=== PATIENT | female | born 1935 | race Caucasian/White ===

== ENCOUNTER 2017-01-10 10:43 | Inpatient (IN) ==
[2017-01-10] MEDS ORDERED: SODIUM CHLORIDE 0.9% 500 ML IV STA ×2 (11:15→11:49)
[2017-01-10] MEDS ORDERED: ONDANSETRON 4 MG/2 ML VIAL ONE (11:36)
[2017-01-10 11:40] LABS: Basophils # 0.1 10*3/uL (0.0-0.2); Basophils % 0.3 % (0.0-0.8); Eosinophils % 0.1 % (0.00-10.9); Hemoglobin 13.5 GM/DL (12.0-16.0); Immature Granulocytes % 0.6 %; Immature Granulocytes Absolute 0.11 #; Lymphocytes # 1.3 10*3/uL (1.4-4.0); Lymphocytes % 6.7 % (21.3-54.2); Mean Corpuscular HGB Conc 34.6 GM/DL (32-36); Mean Corpuscular Hemoglobin 30 PG (27-34); Mean Corpuscular Volume 85.2 FL (87-102); Mean Platelet Volume 9.8 FL (9.6-12.0); Monocytes % 5.5 % (1.7-12.7); Neutrophils # 16.3 10*3/uL (1.4-7.4); Neutrophils % 86.8 % (38.7-73.9); Platelet Count 269 T/CUMM (130-400); Red Blood Count 4.58 MC/CUMM (3.8-5.5); White Blood Count 18.8 T/CUMM (4-12)
[2017-01-10 12:10] LABS: Apearance,Urine CLOUDY (Clear); Bacteria,Urine Many /HPF (Few); Bilirubin,Urine Negative (Negative); Blood, Urine Small mg/dL (Negative); Glucose,Urine (UA) Negative (Negative); Ketones,Urine Negative (Negative); Mucus,Urine Occasional /LPF (Occasional); Nitrite,Urine Positive (Negative); Protein,Urine 30 MG/DL; Squamous Epithelial Cell,Urine Occasional /HPF (0-10); Urine Color Yellow (Yellow); Urine Specific Gravity 1.012 (1.001-1.035); Urine Urobilinogen < 2.0 EU/DL (0.2-1.0); WBC,Urine 296 /HPF (0-6)
[2017-01-10] MEDS ORDERED: PIPERACILLIN/TAZOBACTAM 2,250 MG in SODIUM CHLORIDE 0.9% 100 ML IV STA (12:16)
[2017-01-10] MEDS ORDERED: PIPERACILLIN/TAZOBACTAM 3,375 MG in SODIUM CHLORIDE 0.9% 100 ML IV STA (12:17)
[2017-01-10 12:20] LABS: Albumin 3.6 G/DL (3.4-5.0); Bilirubin,Total 0.6 MG/DL (0.2-1.0); Calcium 8.9 MG/DL (8.5-10.1); Osmolality,Calculated 280.7 MOS/KG (273-304); Total Protein 6.4 G/DL (6.4-8.3)
--- NOTE | 2017-01-10 12:21 | Emergency Department Note ---
Altagracia Schneider Rolonda, am scribing for, and in the presence of, Julien Mirza MD 11:21. Yuki Schneider Phillip K, MD, personally performed the services described in this documentation, ascribed by Aurelia Frias in my presence, and it is both accurate and complete . Arrival - Arrival Chief Complaint: Fall Stated Complaint: Disorient,sob,fell,dry mouth,unsteady balance ED Nursing Triage Note: reports has fallen three times over the past two days. has been dry heaving all night but not vomiting anything up. pt c/o mouth being dry. Mode of Arrival: Wheelchair Limitations: No Limitations Source: Patient, Old Records Reviewed, RN Notes Reviewed - History of Present Illness HPI Narrative: Pt is an 81 y/o female who presents to the ED for further evaluation of a fall with an onset of x1 week ago. Pt has a PMHx of Anemia. Pt states that the first time she fell was when she was coming out of [place] last week. Pt states that she blacked out when she fell and she does not remember falling. She states that she also fell x2 times last night while in the bathroom. She states that her legs became weak and she fell. Pt denies LOC s/p falling last night. She confirms that she had a CT scan done x1 week ago with nml results. She confirms "tremendous" generalized weakness, weight loss, and dry heaving but denies change in speech. She states that she had a scar repair from heart surgery x3 weeks ago and that she is on Plavix. No other complaint/pain in ED. Onset (ago): week(s) Consistency: constant Severity: moderate, severe Severity scale (1-10): 5 Allergies/Adverse Reactions: Allergies Allergy/AdvReac Type Severity Reaction Status Date / Time atorvastatin [From Lipitor] Allergy Unknown Unknown/Unable Verified 01/09/16 07: 40 to obtain azithromycin [From Zithromax] Allergy Unknown Unknown/Unable Verified 01/09/16 07:40 to obtain clarithromycin [From Biaxin] Allergy Unknown Unknown/Unable Verified 01/09/16 07 :40 to obtain Erythromycin Base Allergy Unknown Unknown/Unable Verified 01/09/16 07:40 to obtain ezetimibe [From Zetia] Allergy Unknown Unknown/Unable Verified 01/09/16 07:40 to obtain Home Medications: Home Medications Medication Instructions Recorded Confirmed Type Allopurinol 300 mg PO DAILY 01/09/16 01/10/17 History Aspirin [Ecotrin] 81 mg PO QAM 01/09/16 01/10/17 History Carvedilol 3.125 mg PO BID 01/09/16 01/10/17 History Clopidogrel [Plavix] 75 mg PO BEDTIME 01/09/16 01/10/17 History Furosemide 80 mg PO DAILY 01/09/16 01/10/17 History HYDROcodone/ACETAMIN 5-325 [[place] 1 tablet PO Q6H PRN 01/09/16 01/10/17 History 5-325] Levothyroxine Tab [Synthroid Tab] 100 mcg PO DAILY@0700 01/09/16 01/10/17 History Nitroglycerin [Nitroglycerin SL 0.4 mg SL Q5M PRN 01/09/16 01/10/17 History Tab] Potassium Chloride 20 meq PO DAILY 01/09/16 01/10/17 History Amitriptyline HCl [Amitriptyline 50 mg PO BEDTIME PRN 01/10/17 01/10/17 History HCl] Cetirizine Tab [ZyrTEC Tab] 10 mg PO DAILY PRN 01/10/17 01/10/17 History Docusate Sodium Cap [Colace Cap] 100 mg PO DAILY 01/10/17 01/10/17 History Ibuprofen/Diphenhydramine HCl 1 capsule PO BEDTIME PRN 01/10/17 01/10/17 History [Advil PM Cap] Meclizine [Antivert] 12.5 mg PO BID PRN 01/10/17 01/10/17 History Oxybutynin [Ditropan] 5 mg PO TID 01/10/17 01/10/17 History Ranitidine Tab [Zantac Tab] 150 mg PO DAILY 01/10/17 01/10/17 History Rosuvastatin Calcium [Rosuvastatin 20 mg PO BEDTIME 01/10/17 01/10/17 History Calcium] traZODone [Desyrel] 50 mg PO BEDTIME PRN 01/10/17 01/10/17 History Review of System - Review of System 12 point system: reviewed and no additional remarkable complaints except as stated - Review of System Constitutional: Present: fever, weakness (generalized "tremendous"), weight loss. Absent: chills Eyes: Absent: discharge Head/Ears/Nose/Throat: Absent: earache Respiratory: Absent: cough Cardiovascular: Present: syncope. Absent: chest pain Gastrointestinal: Present: nausea. Absent: abdominal pain, vomiting (dry heaving) Genitourinary female: Absent: dysuria Musculoskeletal: Absent: arm pain, back pain Skin: Absent: rash Neurological: Absent: headache Psychiatric: Absent: anxiety Endocrine: Absent: cold intolerance Hematological/Lymphatic: Absent: easy bleeding Allergic/Immunologic: Absent: facial swelling Medical,Surgical,& Family Hx - Medical History Cardio: No history of: [place], Pacemaker Neurology: History of: Cerebrovascular Accident Endocrine: History of: Dyslipidemia, Thyroid Disorder Genitourinary: No history of: Kidney Stones Gastrointestinal: History of: GERD, GI Problems (DIARRHEA) Musculoskeletal: History of: Back/Neck Problems - Surgical History Cardiac Surgeries: Sugical HX of: Cardiac Catheterization, Cardiac Surgery (2013 ) HEENT Surgeries: Surgical HX of: Tonsilectomy & Adenoidectomy Abdominal Surgeries: Surgical HX of: Appendectomy, Colonoscopy, EGD Patient denies: Cholecystectomy Reproductive Surgeries: Surgical HX of;: Hysterectomy Orthopedic Surgeries: Patient denies;: Orthopedic Surgery - Social History Smoking Status: Never smoker Exam Vital Signs: Vital Signs Temperature 99.0 F 01/10/17 20:00 Pulse Rate 68 01/11/17 07:00 Respiratory Rate 15 01/11/17 07:00 Blood Pressure 144/51 01/11/17 07:00 O2 Sat by Pulse Oximetry 96 01/11/17 07:00 - General General appearance: alert, in no apparent distress - Head Head exam: Present: atraumatic, normocephalic - Eye Eye exam: Present: PERRL, EOMI. Absent: normal appearance (pale conjunctival) - ENT ENT exam: Absent: mucous membranes dry (pale mucous membranes) - Neck Neck exam: Present: full ROM. Absent: tenderness - Chest Chest inspection: Present: symmetric chest wall rise. Absent: tenderness - Respiratory Respiratory exam: Present: normal lung sounds bilaterally. Absent: wheezes - Cardiovascular Cardiovascular exam: Present: normal rhythm, tachycardia - Abdominal Exam Abdominal exam: Present: soft, normal bowel sounds. Absent: tenderness - Extremities Exam Extremities exam: Present: full ROM, pedal edema (trace). Absent: tenderness - Back Exam Back exam: Present: full ROM. Absent: tenderness - Neurological Exam Neurological exam: Present: alert, oriented X3, CN II-XII intact - Psychiatric Psychiatric exam: Present: normal affect, normal mood - Skin Skin exam: Present: warm, dry, intact, normal color. Absent: rash Course Course Narrative: Patient discussed with the hospitalist. Patient was tilt positive her heart rate was 89 supine with a blood pressure 118/61. Sitting her up her pressure went to 73/53 with a pulse of 107. Results - Labs CBC & BMP: 01/11/17 03:49 01/11/17 03:49 Lab Results: I have reviewed the patients labs (Urinalysis shows large amount of leukocytes and bacteria in a cath specimen) Labs: Laboratory Tests 01/10/17 11:29 WBC 18.8 H RBC 4.58 Hgb 13.5 Hct 39.0 MCV 85.2 L Neut % (Auto) 86.8 H Lymph % (Auto) 6.7 L Neut # (Auto) 16.3 H Lymph # (Auto) 1.3 L [place] # (Auto) 1.0 H Laboratory Tests 01/10/17 11:29 Urine pH 5.0 Ur Specific [place] 1.012 Urine Protein 30 Urine Glucose (UA) Negative Urine Ketones Negative Urine Blood Small Urine Nitrate Positive H Urine Bilirubin Negative Urine Urobilinogen < 2.0 H Urine Leukocytes Large H Urine WBC 296 Urine WBC Clumps Many Ur Squamous Epith Cells Occasional Urine Bacteria Many Urine Mucus Occasional Ur Culture Indicated? Results to follow Laboratory Tests 01/10/17 01/10/17 11:29 11:29 Sodium 138 Potassium 3.0 L Chloride 99 Carbon Dioxide 28 BUN 22 H Creatinine 1.60 H GFR Calculation 28 Glucose 146 H Lactic Acid 2.6 H Alkaline Phosphatase 163 H - EKG EKG results: interpreted by DEYVI, sinus rhythm (Right bundle branch block) - Diagnostic Findings Procedure: Chest x-ray: image reviewed by me, report reviewed by me (No infiltrate noted. No acute cardiopulmonary process compared to the previous study. Shallow breath.) Disposition Clinical Impression: Acute pyelonephritis, Frequent falls, Dehydration, Possible sepsis, History of syncope, Hypokalemia Case discussed with: patient, patient's family Disposition: Still a Patient Condition: Guarded
[2017-01-10] MEDS ORDERED: POTASSIUM CHLORIDE 20 MEQ TABLET PO STA (12:35)
[2017-01-10] MEDS ORDERED: PIPERACILLIN/TAZOBACTAM 3,375 MG VIAL IV ONE (12:35)
--- NOTE | 2017-01-10 12:43 | EKG Report ---
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
[2017-01-10] MEDS ORDERED: POTASSIUM CHLORIDE 20 MEQ TABLET PO ONE (12:59)
[2017-01-10] MEDS ORDERED: SODIUM CHLORIDE 0.9% 1,900 ML IV ONE (13:11)
[2017-01-10] MEDS ORDERED: ACETAMINOPHEN 325 MG TABLET PO PRN (13:14)
[2017-01-10] MEDS ORDERED: ONDANSETRON 4 MG/2 ML VIAL IV PRN (13:14)
--- NOTE | 2017-01-10 13:20 | Hospitalist History & Physical ---
Assessment and Plan - Time spent with patient Time spent with patient: Greater than 30 minutes (1) Sepsis Status: Acute Assessment and plan: WBC 18.8 lactic acid 2.6 temp 100.0 tachycardic Initiate sepsis protocol including blood cultures 2, urine cultures, fluid bolus plus maintenance IV fluids, routine lactic acid in 3 hours Admit to CCU for further evaluation and treatment Current Visit: Yes (2) UTI (urinary tract infection) Status: Acute Assessment and plan: Urine cultures have been ordered. Patient started on Zosyn empirically per sepsis protocol Current Visit: Yes (3) Dehydration Status: Acute Assessment and plan: Elevated creatinine is 1.6. IV fluids. Recheck chemistry in a.m. Current Visit: Yes (4) Frequent falls Status: Acute Current Visit: Yes (5) History of syncope Status: Acute Current Visit: Yes (6) Hypokalemia Status: Acute Assessment and plan: Potassium 3.0. Initiate potassium replacement protocol Current Visit: Yes History of Present Illness Chief complaint: UTI, Falls, Sepsis History of present illness: Ms. Suero is a 81 year old white female with a past medical history significant for CVA, hypertension, syncopal episodes, frequent falls, UTIs and cardiomyopathy who presents to the ED today with complaints of frequent falls, decreased appetite and UTI having onset yesterday. The patient reports that she has intermittently experienced frequent falls for the better part of a year now with 4 episodes in the last 2 weeks (2 on last night). She reports a history of UTIs but "never this bad". She confirms mild headache, dysuria, coughing, dry heaving, nausea, lower back pain and mild confusion since returning from their family condo in [place] on yesterday. She has not had an appetite and has only had a cup of coffee and a few sips of water since Tuesday. On admission, the patient was found to have orthostatic hypotension, a low grade fever (100F) , tachycardia, and an elevated WBC (18.8). On further exam, her urine is positive for infection and her lactic acid level is 2.6. Blood and urine cultures were ordered, a fluid bolus was given, IV broad spectrum antibiotics were started and the patient was admitted to CCU for further evaluation and treatment. This case has been discussed with both Dr. Mirza and Dr. Bledsoe, and the patient has been admitted to the hospital medicine service. CODE STATUS discussed; patient is a FULL CODE. Home medications have been reviewed and reconciled. Home Medications Medication Instructions Recorded Confirmed Type Allopurinol 300 mg PO DAILY 01/09/16 01/10/17 History Aspirin [Ecotrin] 81 mg PO QAM 01/09/16 01/10/17 History Carvedilol 3.125 mg PO BID 01/09/16 01/10/17 History Clopidogrel [Plavix] 75 mg PO BEDTIME 01/09/16 01/10/17 History Furosemide 80 mg PO DAILY 01/09/16 01/10/17 History HYDROcodone/ACETAMIN 5-325 [[place] 1 tablet PO Q6H PRN 01/09/16 01/10/17 History 5-325] Levothyroxine Tab [Synthroid Tab] 100 mcg PO DAILY@0700 01/09/16 01/10/17 History Nitroglycerin [Nitroglycerin SL 0.4 mg SL Q5M PRN 01/09/16 01/10/17 History Tab] Potassium Chloride 20 meq PO DAILY 01/09/16 01/10/17 History Amitriptyline HCl [Amitriptyline 50 mg PO BEDTIME PRN 01/10/17 01/10/17 History HCl] Cetirizine Tab [ZyrTEC Tab] 10 mg PO DAILY PRN 01/10/17 01/10/17 History Docusate Sodium Cap [Colace Cap] 100 mg PO DAILY 01/10/17 01/10/17 History Ibuprofen/Diphenhydramine HCl 1 capsule PO BEDTIME PRN 01/10/17 01/10/17 History [Advil PM Cap] Meclizine [Antivert] 12.5 mg PO BID PRN 01/10/17 01/10/17 History Oxybutynin [Ditropan] 5 mg PO TID 01/10/17 01/10/17 History Ranitidine Tab [Zantac Tab] 150 mg PO DAILY 01/10/17 01/10/17 History Rosuvastatin Calcium [Rosuvastatin 20 mg PO BEDTIME 01/10/17 01/10/17 History Calcium] traZODone [Desyrel] 50 mg PO BEDTIME PRN 01/10/17 01/10/17 History Allergies Allergy/AdvReac Type Severity Reaction Status Date / Time atorvastatin [From Lipitor] Allergy Unknown Unknown/Unable Verified 01/09/16 07: 40 to obtain azithromycin [From Zithromax] Allergy Unknown Unknown/Unable Verified 01/09/16 07:40 to obtain clarithromycin [From Biaxin] Allergy Unknown Unknown/Unable Verified 01/09/16 07 :40 to obtain Erythromycin Base Allergy Unknown Unknown/Unable Verified 01/09/16 07:40 to obtain ezetimibe [From Zetia] Allergy Unknown Unknown/Unable Verified 01/09/16 07:40 to obtain Medical,Surgical,& Family Hx - Medical History Cardio: No history of: [place], Pacemaker Neurology: History of: Cerebrovascular Accident Endocrine: History of: Dyslipidemia, Thyroid Disorder Genitourinary: No history of: Kidney Stones Gastrointestinal: History of: GERD, GI Problems (DIARRHEA) Musculoskeletal: History of: Back/Neck Problems - Surgical History Cardiac Surgeries: Sugical HX of: Cardiac Catheterization, Cardiac Surgery (2013 ) HEENT Surgeries: Surgical HX of: Tonsilectomy & Adenoidectomy Abdominal Surgeries: Surgical HX of: Appendectomy, Colonoscopy, EGD Patient denies: Cholecystectomy Reproductive Surgeries: Surgical HX of;: Hysterectomy Orthopedic Surgeries: Patient denies;: Orthopedic Surgery - Social History Smoking Status: Never smoker Frequency of Alcohol Use: None Type of Drug Use: None Marital Status: Lives With:: Spouse Functional capacity: uses cane/walker 12 point system: reviewed and no additional remarkable complaints except as stated Exam - Constitutional Vitals: Period Temp Pulse Resp BP Sys/Yin Pulse Ox Last 24 Hr 100.0 F-100.0 F 98-98 18-20 121-121/66-66 97 General appearance: normal weight, mild distress - Head Head exam: Present: normal inspection, normocephalic, atraumatic - Eye Eye exam: Present: EOMI Pupils: Present: LUIZA - ENT ENT exam: Present: normal exam, normal external ear exam - Neck Neck exam: Present: normal inspection. Absent: lymphadenopathy, tenderness - Respiratory Respiratory exam: Present: clear to auscultation bilaterally. Absent: rales, rhonchi, wheezes - Cardiovascular Cardiovascular exam: Present: tachycardia - GI/Abdominal GI/Abdominal exam: Present: normal bowel sounds, soft. Absent: ascites, distended, guarding, mass, rebound - Extremities Exam Extremities exam: Present: normal inspection, normal capillary refill, edema ( trace to 1+ pitting in BLEs) - Back Exam Back exam: Present: normal inspection. Absent: CVA tenderness (L), CVA tenderness (R) - Neurological Exam Neurological exam: Present: alert, oriented X3, reflexes normal - Psychiatric Psychiatric exam: Present: normal affect, normal mood - Skin Skin exam: Present: normal color, warm, dry. Absent: erythema Results - Labs CBC & BMP: 01/10/17 11:29 01/10/17 11:29 Lab Results: I have reviewed the past 24 hour labs - EKG EKG results: interpreted by ERMD - Diagnostic Findings Procedure: Chest x-ray: image reviewed by me, report reviewed by me ( unremarkable) Sepsis - Sepsis Classification of Sepsis: Sepsis - Physical Exam Respiratory exam: clear to auscultation bilaterally Capillary Refill: Less Than 3 Seconds Peripheral pulses: Radial (L): 1+, Radial (R): 1+, Dorsalis Pedis (L) PM: 1+, Dorsalis Pedis (R) PM: 1+, Posterior Tibialis (L): 1+, Posterior Tibialis (R): 1 + Cardiovascular exam: tachycardia Skin exam: normal color
--- NOTE | 2017-01-10 13:28 | XRay Report ---
History: Fever. Falls Date: 01/10/2017 Study: Chest x-ray AP portable Comparison exam: May 21, 2014 There is stable borderline cardiomegaly. The mediastinal contours are unchanged in this patient status post prior median sternotomy. The pulmonary vasculature is not engorged. There is no confluent infiltrate. There is mild scarring in the left base. There is no gross pleural effusion. There is osteopenia and mild to moderate thoracic spondylosis. Impression: No acute cardiopulmonary process compared to the previous study. Shallow breath PROCEDURE INTERPRETED AT [facility] DEPARTMENT OF RADIOLOGY Final Report Signed by: Dr. Christy Morgan
[2017-01-10] MEDS ORDERED: NITROGLYCERIN SL 0.4 MG TABLET SL PRN (14:26)
[2017-01-10] MEDS ORDERED: traZODone 50 MG TABLET PO PRN (14:26)
[2017-01-10] MEDS ORDERED: AMITRIPTYLINE 50 MG TABLET PO PRN (14:26)
[2017-01-10] MEDS ORDERED: CETIRIZINE 10 MG TABLET PO PRN (14:26)
[2017-01-10] MEDS: SODIUM CHLORIDE 0.9% 1,000 ML IV SCH (15:43)
[2017-01-10] MEDS: CARVEDILOL 3.125 MG TABLET PO SCH (17:01)
[2017-01-10] MEDS: ENOXAPARIN 40 MG/0.4 ML SYRINGE SUBCUT SCH (17:01)
[2017-01-10] MEDS: OXYBUTYNIN 5 MG TABLET PO SCH ×2 (17:01→20:34)
[2017-01-10] MEDS: ROSUVASTATIN 20 MG TABLET PO SCH (20:34)
[2017-01-10] MEDS: CLOPIDOGREL 75 MG TABLET PO SCH (20:34)
[2017-01-11 04:39] LABS: Basophils % 0.2 % (0.0-0.8); Eosinophils # 0.1 10*3/uL (0.0-0.87); Eosinophils % 0.5 % (0.00-10.9); Hematocrit 28.6 VOL% (35.7-47.0); Hemoglobin 9.7 GM/DL (12.0-16.0); Immature Granulocytes % 0.9 %; Immature Granulocytes Absolute 0.09 #; Lymphocytes # 2.6 10*3/uL (1.4-4.0); Lymphocytes % 24.9 % (21.3-54.2); Mean Corpuscular HGB Conc 33.9 GM/DL (32-36); Mean Corpuscular Hemoglobin 30 PG (27-34); Mean Corpuscular Volume 87.5 FL (87-102); Mean Platelet Volume 10.6 FL (9.6-12.0); Monocytes # 1.2 10*3/uL (0.11-0.8); Monocytes % 11.8 % (1.7-12.7); Neutrophils # 6.3 10*3/uL (1.4-7.4); Neutrophils % 61.7 % (38.7-73.9); Platelet Count 186 T/CUMM (130-400); Red Blood Count 3.27 MC/CUMM (3.8-5.5); Red Cell Distribution Width 14.5 % (9.3-17.3); White Blood Count 10.3 T/CUMM (4-12)
[2017-01-11 04:50] LABS: Calcium 7.4 MG/DL (8.5-10.1); Potassium 2.8 MMOL/L (3.5-5.1)
[2017-01-11] MEDS: SODIUM CHLORIDE 0.9% 1,000 ML IV SCH ×3 (05:32→05:34)
[2017-01-11] MEDS: PANTOPRAZOLE 40 MG TABLET PO SCH (08:22)
[2017-01-11] MEDS: ALLOPURINOL 300 MG TABLET PO SCH (08:23)
[2017-01-11] MEDS: DOCUSATE SODIUM 100 MG CAPSULE PO SCH (08:23)
[2017-01-11] MEDS: ASPIRIN EC 81 MG TABLET PO SCH (08:23)
[2017-01-11] MEDS: OXYBUTYNIN 5 MG TABLET PO SCH ×3 (08:23→21:25)
[2017-01-11] MEDS: FAMOTIDINE 20 MG TABLET PO SCH (08:23)
[2017-01-11] MEDS: POTASSIUM CHLORIDE 20 MEQ TABLET PO SCH (08:23)
[2017-01-11] MEDS: CARVEDILOL 3.125 MG TABLET PO SCH ×2 (08:23→16:56)
[2017-01-11] MEDS: LEVOTHYROXINE 100 MCG TABLET PO SCH (08:23)
[2017-01-11] MEDS ORDERED: POTASSIUM CHLORIDE 20 MEQ TABLET PO ONE (11:15)
--- NOTE | 2017-01-11 11:26 | Hospitalist Progress Note ---
Assessment and Plan (1) Acute kidney injury Status: Acute Assessment and plan: Improving with IV fluid hydration. Creatinine down to 1.3. Current Visit: Yes (2) Dehydration Status: Resolved Current Visit: Yes (3) Hypokalemia Status: Acute Assessment and plan: Oral replacement ordered. Change IV fluids to lactated Ringer's. Current Visit: Yes (4) Sepsis Status: Acute Assessment and plan: Secondary to urinary tract infection. Improving with Rocephin. IV fluids administered and renal function improved. Blood pressure stable. Repeat lactic acid pending. Current Visit: Yes (5) UTI (urinary tract infection) Status: Acute Assessment and plan: Follow-up cultures. Current Visit: Yes Hospitalist: Subjective Interval history: Patient seen and examined. No acute events overnight. Case discussed with nursing staff. Labs reviewed. Patient looks and feels much better this morning. Exam - Constitutional Vitals: Period Temp Pulse Resp BP Sys/Yin Pulse Ox Last 24 Hr 98.8 F-100.3 F 58-98 15-29 71-146/35-72 92-100 Exam: Constitutional System: No distress. No tremulousness. Head: Normocephalic, atraumatic. Ears, Nose and Throat System: No pain or tenderness. No epistaxis or discharge Eyes System: Pupils equal, round, and reactive. Extraocular muscles intact. Neck: Supple, without adenopathy, No jugular venous distention. No thyromegaly, neck mass, or prior surgery apparent. Respiratory System: Chest clear to auscultation. Cardiovascular System: Heart with regular rate and rhythm. No murmur. GI System: Abdomen soft, nontender. Normo active bowel sounds present. Musculoskeletal System: limbs with no pedal edema. Full distal pulses. Normal capillary refill. Neurological System: No discernable sensory deficit. No aphasia Psychiatric System: Conversation is rational Results - Labs CBC & BMP: 01/11/17 03:49 01/11/17 03:49 Lab Results: I have reviewed the past 24 hour labs
[2017-01-11] MEDS: LACTATED RINGERS 1,000 ML IV SCH (13:49)
[2017-01-11] MEDS: ENOXAPARIN 40 MG/0.4 ML SYRINGE SUBCUT SCH (16:55)
[2017-01-11] MEDS: ROSUVASTATIN 20 MG TABLET PO SCH (21:25)
[2017-01-11] MEDS: CLOPIDOGREL 75 MG TABLET PO SCH (21:25)
[2017-01-12] MEDS: LACTATED RINGERS 1,000 ML IV SCH ×2 (03:16→19:31)
[2017-01-12 05:17] LABS: Basophils % 0.4 % (0.0-0.8); Eosinophils # 0.3 10*3/uL (0.0-0.87); Eosinophils % 2.6 % (0.00-10.9); Hematocrit 28.5 VOL% (35.7-47.0); Hemoglobin 9.6 GM/DL (12.0-16.0); Immature Granulocytes % 0.9 %; Lymphocytes # 2.8 10*3/uL (1.4-4.0); Lymphocytes % 26.4 % (21.3-54.2); Mean Corpuscular HGB Conc 33.7 GM/DL (32-36); Mean Corpuscular Hemoglobin 30 PG (27-34); Mean Corpuscular Volume 88.5 FL (87-102); Mean Platelet Volume 10.3 FL (9.6-12.0); Monocytes # 1.2 10*3/uL (0.11-0.8); Monocytes % 10.9 % (1.7-12.7); Neutrophils # 6.3 10*3/uL (1.4-7.4); Neutrophils % 58.8 % (38.7-73.9); Platelet Count 194 T/CUMM (130-400); Red Blood Count 3.22 MC/CUMM (3.8-5.5); Red Cell Distribution Width 14.6 % (9.3-17.3); White Blood Count 10.7 T/CUMM (4-12)
[2017-01-12 05:28] LABS: PT Patient Result 10.8 SECS
[2017-01-12 06:06] LABS: Calcium 7.8 MG/DL (8.5-10.1); Osmolality,Calculated 284.8 MOS/KG (273-304); Potassium 4.1 MMOL/L (3.5-5.1)
[2017-01-12] MEDS: LEVOTHYROXINE 100 MCG TABLET PO SCH (06:12)
--- NOTE | 2017-01-12 07:32 | Hospitalist Progress Note ---
Assessment and Plan (1) Sepsis Status: Acute Assessment and plan: Secondary to urinary tract infection. Improving with Rocephin. IV fluids administered and renal function improved. Blood pressure stable. Lactic acid is slowly improving..UC grew gram negative rods, BC is negative so far. Current Visit: Yes (2) UTI (urinary tract infection) Status: Acute Assessment and plan: UC grew gram negative rods.BC negative so far Plan continue IV Rocephin Current Visit: Yes (3) Acute kidney injury Status: Acute Assessment and plan: much improved with IVF Current Visit: Yes (4) Hypokalemia Status: Acute Assessment and plan: repleted Current Visit: Yes (5) History of syncope Status: Acute Assessment and plan: resulting in falls. Most likely due to dehydration, UTI.Will r/o ACS, stroke Plan Cardiac enzymes MRI brain Carotid dopplers Current Visit: Yes Hospitalist: Subjective Interval history: Ms. Saldaña is admitted with sepsis secondary to urinary tract infection with acute dehydration and acute kidney injury and an elevated lactic acid. She was transferred to the floor from the unit yesterday. This am, she no new complaints. Exam - Constitutional Vitals: Period Temp Pulse Resp BP Sys/Yin Pulse Ox Last 24 Hr 97.3 F-99.1 F 58-76 15-22 108-131/42-66 93-98 General appearance: no acute distress - Head Head exam: Present: normal inspection - Respiratory Respiratory exam: Present: clear to auscultation bilaterally - Cardiovascular Cardiovascular exam: Present: regular rate and rhythm - GI/Abdominal GI/Abdominal exam: Present: normal bowel sounds - Extremities Exam Extremities exam: Present: normal inspection - Neurological Exam Neurological exam: Present: alert, oriented X3 Results - Labs CBC & BMP: 01/12/17 04:51 01/12/17 04:51 Lab Results: I have reviewed the past 24 hour labs
[2017-01-12 09:06] LABS: Troponin I Only 0.027 NG/ML (0.00-0.045)
[2017-01-12] MEDS: PANTOPRAZOLE 40 MG TABLET PO SCH (09:32)
[2017-01-12] MEDS: POTASSIUM CHLORIDE 20 MEQ TABLET PO SCH (09:32)
[2017-01-12] MEDS: ASPIRIN EC 81 MG TABLET PO SCH (09:32)
[2017-01-12] MEDS: FAMOTIDINE 20 MG TABLET PO SCH (09:32)
[2017-01-12] MEDS: ALLOPURINOL 300 MG TABLET PO SCH (09:32)
[2017-01-12] MEDS: OXYBUTYNIN 5 MG TABLET PO SCH ×3 (09:32→21:37)
[2017-01-12] MEDS: CARVEDILOL 3.125 MG TABLET PO SCH ×2 (09:32→17:20)
[2017-01-12] MEDS: DOCUSATE SODIUM 100 MG CAPSULE PO SCH (09:32)
--- NOTE | 2017-01-12 10:01 | Ultrasound Report ---
Exam: US carotid duplex BI Date: 01/12/2017 7:39 AM Indication: Syncope Findings: Grayscale color flow analysis and spectral analysis imaging was performed with image stored and captured. Right Side Flow velocities centimeters per second Common carotid artery: 88.6 Proximal ICA: 71.8 Distal ICA: 77.0 External carotid artery: 65.0 Vertebral artery: 93.8 ICA/CCA ratio: 0.9 Measurements in millimeters Distal ICA: 5.9 Left SIde Flow velocities centimeters per second Common carotid artery: 106.9 Proximal ICA: 101.5 Distal ICA: 108.7 External carotid artery: 79.5 Vertebral artery: 66.8 ICA/CCA ratio: 1 Measurements in millimeters Distal ICA: 5.7 Mild intimal hyperplasia present. Minimal plaque within the right carotid bulb and takeoff the internal carotid arteries. No spectral broadening present. Moderate plaque within the left carotid bulb. Normal color flow present. Impression: 1. 16-49% stenosis bilaterally with moderate to heavy plaque in the left carotid bulb with mild plaque in the right carotid bulb Today studies were performed utilizing indirect NASCET criteria The ultrasound images were stored and captured PROCEDURE INTERPRETED AT [facility] DEPARTMENT OF RADIOLOGY Final Report Signed by: Dr. Bryan Cheung
--- NOTE | 2017-01-12 13:53 | Magnetic Resonance Report ---
History: Sepsis. Syncope Date: 01/12/2017 Study: MRI brain without IV contrast Comparison exam: CT head January 03, 2017 and MRI brain August 26, 2015 The brain was imaged in 3 planes on the 1.2 Jen open magnet without IV contrast, to include FLAIR, diffusion, T2, and T1-weighted sequences. The ventricles are midline in position without evidence of hydrocephalus. There is no Chiari I malformation. There is no gross pituitary mass. There is no evidence of acute ischemia on the diffusion sequence. There is a small wedge-shaped area of chronic ischemia in the right occipital lobe, posteriorly in the parafalcine area, measuring roughly 13 to 14 mm diameter, unchanged from the previous MRI. There is a small amount of patchy and punctate increased FLAIR and T2 signal in the periventricular white matter without mass effect compatible with changes of small vessel disease, similar to the previous MRI. There is no brain mass or acute parenchymal hemorrhage. There is a normal flow void in the superior sagittal sinus. There is no gross flow abnormality in the [place] area. There is no obvious cerebellopontine angle. There is minimal fluid signal in the mastoid air cells on the left. Impression: No acute intracranial process. No evidence of acute ischemia. Small chronic right occipital infarct as on the 2016 study. 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 Christy Morgan
[2017-01-12] MEDS: ENOXAPARIN 40 MG/0.4 ML SYRINGE SUBCUT SCH (17:20)
[2017-01-12] MEDS: CLOPIDOGREL 75 MG TABLET PO SCH (21:37)
[2017-01-12] MEDS: ROSUVASTATIN 20 MG TABLET PO SCH (21:37)
[2017-01-13 05:20] LABS: Basophils # 0.1 10*3/uL (0.0-0.2); Basophils % 0.5 % (0.0-0.8); Eosinophils # 0.2 10*3/uL (0.0-0.87); Eosinophils % 2.3 % (0.00-10.9); Hematocrit 29.8 VOL% (35.7-47.0); Hemoglobin 10.2 GM/DL (12.0-16.0); Immature Granulocytes % 0.8 %; Immature Granulocytes Absolute 0.08 #; Lymphocytes # 2.7 10*3/uL (1.4-4.0); Lymphocytes % 26.5 % (21.3-54.2); Mean Corpuscular HGB Conc 34.2 GM/DL (32-36); Mean Corpuscular Hemoglobin 30 PG (27-34); Mean Corpuscular Volume 87.4 FL (87-102); Mean Platelet Volume 10.3 FL (9.6-12.0); Monocytes # 0.9 10*3/uL (0.11-0.8); Monocytes % 8.3 % (1.7-12.7); Neutrophils # 6.3 10*3/uL (1.4-7.4); Neutrophils % 61.6 % (38.7-73.9); Platelet Count 203 T/CUMM (130-400); Red Blood Count 3.41 MC/CUMM (3.8-5.5); Red Cell Distribution Width 14.6 % (9.3-17.3); White Blood Count 10.3 T/CUMM (4-12)
[2017-01-13 05:56] LABS: Calcium 8.3 MG/DL (8.5-10.1); Osmolality,Calculated 279.1 MOS/KG (273-304); Potassium 3.6 MMOL/L (3.5-5.1)
[2017-01-13] MEDS: LEVOTHYROXINE 100 MCG TABLET PO SCH (07:05)
[2017-01-13] MEDS: ASPIRIN EC 81 MG TABLET PO SCH (07:59)
[2017-01-13] MEDS: CARVEDILOL 3.125 MG TABLET PO SCH (07:59)
[2017-01-13] MEDS: OXYBUTYNIN 5 MG TABLET PO SCH (07:59)
[2017-01-13] MEDS: ALLOPURINOL 300 MG TABLET PO SCH (07:59)
[2017-01-13] MEDS: POTASSIUM CHLORIDE 20 MEQ TABLET PO SCH (07:59)
[2017-01-13] MEDS: FAMOTIDINE 20 MG TABLET PO SCH (08:00)
[2017-01-13] MEDS: PANTOPRAZOLE 40 MG TABLET PO SCH (08:00)
[2017-01-13] MEDS: DOCUSATE SODIUM 100 MG CAPSULE PO SCH (08:02)
[2017-01-13] MEDS: LACTATED RINGERS 1,000 ML IV SCH (08:03)
[2017-01-13] MEDS ORDERED: FUROSEMIDE 40 MG/4 ML VIAL IV ONE (08:51)
--- NOTE | 2017-01-13 09:49 | Discharge Summary ---
Hospital Course - Hospital Course Hospital Course: Ms. Suero is a 81 year old white female with a past medical history significant for CVA, hypertension, syncopal episodes, frequent falls, UTIs and cardiomyopathy who presents to the ED today with complaints of frequent falls, decreased appetite and UTI having onset yesterday. She reports a history of UTIs but "never this bad". Patient grew out E. coli in his urine. Blood cultures 2 were negative no growth. Patient had severe sepsis and was treated aggressively with IV fluids and IV antibiotics. Her lactic acid was over 2. Patient has a known cardiomyopathy but her EF is not known. We held her Lasix due to dehydration. Her potassium was low and replaced. Patient will be treated with a total of 2 weeks of antibiotics. Patient had 2 IVs that looked like the either infiltrated and caused inflammation in the beginning sources of infection. The antibiotics used to treat her E. coli should cover her skin. Patient is anxious to go home. She has a history of falls but has refused home health and home PT. MRI of her brain shows nothing acute. Carotid Dopplers showed 16-49% stenosis bilaterally due to heavy plaque. Patient will be discharged home today to follow-up with her primary care doctor in 1 week and with her parallel computing software engineer in 2 weeks. - Time spent with patient Time with patient DS: Greater than 30 minutes (45 min) Discharge Plan - Discharge Data Disposition: Disch To Home/Self Care Condition at Discharge: Stable Discharge Diet: heart healthy Activity: resume usual activities as tolerated Hygiene: no restrictions Weight Bearing at Discharge: full weight bearing Driving: not until seen by doctor - Discharge Medications New Cefuroxime Tab [Ceftin] 500 mg PO BID #22 tablet Pantoprazole Tab [Protonix Tab] 40 mg PO DAILY #30 tablet Continue Carvedilol 3.125 mg PO BID Aspirin [Ecotrin] 81 mg PO QAM Allopurinol 300 mg PO DAILY Potassium Chloride 20 meq PO DAILY Nitroglycerin [Nitroglycerin SL Tab] 0.4 mg SL Q5M PRN PRN Reason: Chest Pain HYDROcodone/ACETAMIN 5-325 [[place] 5-325] 1 tablet PO Q6H PRN PRN Reason: Pain Clopidogrel [Plavix] 75 mg PO BEDTIME Levothyroxine Tab [Synthroid Tab] 100 mcg PO DAILY@0700 Amitriptyline HCl 50 mg PO BEDTIME PRN PRN Reason: Anxiety Cetirizine Tab [ZyrTEC Tab] 10 mg PO DAILY PRN PRN Reason: Allergy Symptoms Oxybutynin [Ditropan] 5 mg PO TID Ranitidine Tab [Zantac Tab] 150 mg PO DAILY Rosuvastatin Calcium 20 mg PO BEDTIME traZODone [Desyrel] 50 mg PO BEDTIME PRN PRN Reason: Sleep Changed Furosemide 40 mg PO DAILY #0 Discontinued Ibuprofen/Diphenhydramine HCl [Advil PM Cap] 1 capsule PO BEDTIME PRN PRN Reason: Insomnia - Follow Up or Referral Follow Up: Duy Monroy MD [Physician] - 2 Weeks pmd, [Other] - 1 Week - Forms/Instructions Exam - Constitutional Vitals: Period Temp Pulse Resp BP Sys/Yin Pulse Ox Last 24 Hr 97.0 F-98.9 F 61-74 18-20 113-137/49-95 91-96 General appearance: normal weight, no acute distress - Respiratory Respiratory exam: Present: clear to auscultation bilaterally, decreased breath sounds. Absent: rales, wheezes - Cardiovascular Cardiovascular exam: Present: regular rate and rhythm. Absent: systolic murmur - GI/Abdominal GI/Abdominal exam: Present: normal bowel sounds, soft - Extremities Exam Extremities exam: Present: edema - Neurological Exam Neurological exam: Present: alert, oriented X3 Discharge Results Procedures and tests throughout hospitalization: Pending Orders 01/10/17 11:29 Blood Culture Stat 01/11/17 11:15 Occult Blood, Stool Routine Labs on day of discharge: Labs from last 24 hours 01/13/17 01/13/17 04:22 04:22 WBC 10.3 RBC 3.41 L Hgb 10.2 L Hct 29.8 L MCV 87.4 MCH 30 MCHC 34.2 RDW 14.6 Plt Count 203 MPV 10.3 Neut % (Auto) 61.6 Lymph % (Auto) 26.5 Whiteside % (Auto) 8.3 Eos % (Auto) 2.3 Baso % (Auto) 0.5 Neut # (Auto) 6.3 Lymph # (Auto) 2.7 [place]ites[place] # (Auto) 0.9 H Eos # (Auto) 0.2 Baso # (Auto) 0.1 Immature Gran % 0.8 Nucleated RBC % 0.0 Immature Gran # 0.08 Nucleated RBCs # 0.00 Immature Plt Fraction 0.0 Sodium 142 Potassium 3.6 Chloride 110 H Carbon Dioxide 24 Anion Gap 11.6 BUN 8 Creatinine 0.90 GFR Calculation 59 BUN/Creatinine Ratio 8.00 Glucose 86 Calculated Osmolality 279.1 Calcium 8.3 L Preliminary micro results at discharge 01/10/17 11:29 Blood Culture - Preliminary Blood No growth at 1 day 01/10/17 11:29 Blood Culture - Preliminary Blood No growth at 1 day DS: Provider Date of admission: 01/10/17 12:42 Primary care physician: Bryan Alvarado MD Attending physician on admission: Fabio Bledsoe MD Consults: 01/10/17 14:57 Consult to Dietitian [CONS] Routine Reason for Dietitian: Dietary Consult 01/10/17 15:03 Consult to Pastoral Services [CONS] Routine Comment: Pastoral Screen: Request Gaming Commissioner Visit Pastoral Screen Source of Request: Patient Discharging clinician: Margaret Atkinson MD
[2017-01-13 13:10] VITALS: BP 136/78
== END 2017-01-13 12:45 | disposition home or self-care (01) | DRG 872 ==
LOC: N.ED 10:43 → N.EDINP 12:42 → SUATTDRO 12:42 → N.CC 14:22 → N.3E 01-11 16:23
PROVIDERS: ADMIT Family Medicine; ATTEND Internal Medicine

== ENCOUNTER 2020-04-15 11:19 | Inpatient (IN) ==
[2020-04-15] MEDS ORDERED: MORPHINE 4 MG/1 ML VIAL IV STA (11:48)
[2020-04-15] MEDS ORDERED: ONDANSETRON 4 MG/2 ML VIAL IV STA (11:48)
[2020-04-15 11:59] LABS: Basophils # 0.1 10*3/uL (0.0-0.2); Basophils % 1.2 % (0.0-0.8); Eosinophils # 0.3 10*3/uL (0.0-0.87); Eosinophils % 2.1 % (0.00-10.9); Hematocrit 38.4 VOL% (35.7-47.0); Hemoglobin 12.7 GM/DL (12.0-16.0); Immature Granulocytes % 0.4 %; Immature Granulocytes Absolute 0.05 #; Lymphocytes # 3.3 10*3/uL (1.4-4.0); Lymphocytes % 27.3 % (21.3-54.2); Mean Corpuscular HGB Conc 33.1 GM/DL (32-36); Mean Platelet Volume 11.3 FL (9.6-12.0); Monocytes # 0.9 10*3/uL (0.11-0.8); Monocytes % 7.5 % (1.7-12.7); Neutrophils % 61.5 % (38.7-73.9); Platelet Count 254 T/CUMM (130-400); Red Blood Count 4.52 MC/CUMM (3.8-5.5); Red Cell Distribution Width 14.3 % (9.3-17.3); White Blood Count 12.2 T/CUMM (4-12)
[2020-04-15 12:32] LABS: Albumin 3.6 G/DL (3.4-5.0); Bilirubin,Total 0.6 MG/DL (0.2-1.0); Calcium 8.7 MG/DL (8.5-10.1); Osmolality,Calculated 274.8 MOS/KG (273-304); Potassium 4.5 MMOL/L (3.5-5.1)
[2020-04-15 12:41] LABS: Anisocytosis 1+; Band Neutrophils 2 % (0-10); Eosinophils 5 % (0-10); Lymphocytes 23 % (20-55); Ovalocytes Few; Platelet Estimate Normal; Smudge Cells Few; Total Cells Counted 100
[2020-04-15] MEDS ORDERED: ALBUTEROL/IPRATROPIUM 3 ML NEB RESP TX PRN (13:48)
[2020-04-15] MEDS ORDERED: BISACODYL 5 MG TABLET PO PRN (13:48)
[2020-04-15] MEDS ORDERED: ONDANSETRON 4 MG/2 ML VIAL IV PRN (13:48)
[2020-04-15] MEDS ORDERED: MORPHINE 4 MG/1 ML VIAL IV PRN ×2 (13:48)
[2020-04-15] MEDS ORDERED: ACETAMINOPHEN 325 MG TABLET PO PRN (13:48)
[2020-04-15] MEDS ORDERED: SODIUM CHLORIDE 0.9% 100 ML IV ONE (14:43)
[2020-04-15] MEDS: LACTATED RINGERS 1,000 ML IV SCH (14:50)
[2020-04-15] MEDS ORDERED: METHOCARBAMOL 750 MG TABLET PO PRN (15:36)
[2020-04-15] MEDS ORDERED: NITROGLYCERIN SL 0.4 MG TABLET SL PRN (15:36)
[2020-04-15] MEDS ORDERED: hydrOXYzine HCL 25 MG TABLET PO PRN (15:36)
[2020-04-15] MEDS: ASPIRIN EC 81 MG TABLET PO SCH (20:37)
[2020-04-15] MEDS: ROSUVASTATIN 20 MG TABLET PO SCH (20:37)
[2020-04-15] MEDS: carvediloL 3.125 MG TABLET PO SCH (20:37)
[2020-04-15] MEDS: MECLIZINE 25 MG TABLET PO SCH (20:37)
[2020-04-15] MEDS: allopurinoL 100 MG TABLET PO SCH (20:37)
[2020-04-16 05:37] LABS: Basophils # 0.1 10*3/uL (0.0-0.2); Basophils % 1.2 % (0.0-0.8); Eosinophils # 0.4 10*3/uL (0.0-0.87); Eosinophils % 4.7 % (0.00-10.9); Hematocrit 34.5 VOL% (35.7-47.0); Hemoglobin 11.1 GM/DL (12.0-16.0); Immature Granulocytes % 0.3 %; Immature Granulocytes Absolute 0.03 #; Lymphocytes % 32.8 % (21.3-54.2); Mean Corpuscular HGB Conc 32.2 GM/DL (32-36); Mean Corpuscular Volume 86.9 FL (87-102); Mean Platelet Volume 11.4 FL (9.6-12.0); Monocytes # 0.9 10*3/uL (0.11-0.8); Monocytes % 9.7 % (1.7-12.7); Neutrophils % 51.3 % (38.7-73.9); Platelet Count 218 T/CUMM (130-400); Red Blood Count 3.97 MC/CUMM (3.8-5.5); Red Cell Distribution Width 14.2 % (9.3-17.3); White Blood Count 9.2 T/CUMM (4-12)
[2020-04-16] MEDS: LEVOTHYROXINE 100 MCG TABLET PO SCH (05:44)
[2020-04-16] MEDS: LACTATED RINGERS 1,000 ML IV SCH ×3 (06:08→09:29)
[2020-04-16 06:21] LABS: Calcium 8.8 MG/DL (8.5-10.1)
[2020-04-16] MEDS ORDERED: ROCURONIUM 50 MG/5 ML VIAL IV ONE (06:55)
[2020-04-16] MEDS ORDERED: fentaNYL 100 MCG/2 ML VIAL ONE ×2 (06:55→08:21)
[2020-04-16] MEDS ORDERED: SUCCINYLCHOLINE 200 MG/10 ML VIAL ONE (06:55)
[2020-04-16] MEDS ORDERED: LIDOCAINE 2% 5 ML VIAL ONE (06:55)
[2020-04-16] MEDS ORDERED: propofoL 200 MG/20 ML VIAL IV ONE (06:55)
[2020-04-16] MEDS ORDERED: SEVOFLURANE 1 UNIT/15 MINUTE INH ONE ×3 (06:57→08:43)
[2020-04-16] MEDS ORDERED: TISSUE ADHESIVE 1 EACH APPLICATOR TOP ONE (07:25)
[2020-04-16] MEDS ORDERED: BUPIVACAINE MPF 0.25% 30 ML VIAL ONE (07:25)
[2020-04-16] MEDS ORDERED: LIDOCAINE 1% 20 ML VIAL ONE (07:26)
[2020-04-16] MEDS ORDERED: ePHEDrine 50 MG/ML VIAL ONE (07:56)
[2020-04-16] MEDS ORDERED: DEXAMETHASONE 4 MG/1 ML VIAL ONE ×2 (08:05)
[2020-04-16] MEDS ORDERED: ONDANSETRON 4 MG/2 ML VIAL ONE ×2 (08:05)
[2020-04-16] MEDS ORDERED: hydrALAZINE 20 MG/1 ML VIAL ONE (08:37)
[2020-04-16] MEDS: MECLIZINE 25 MG TABLET PO SCH ×2 (14:09→21:04)
[2020-04-16] MEDS: carvediloL 3.125 MG TABLET PO SCH ×2 (14:09→21:05)
[2020-04-16] MEDS: PANTOPRAZOLE 40 MG TABLET PO SCH (15:17)
[2020-04-16] MEDS: allopurinoL 100 MG TABLET PO SCH (21:04)
[2020-04-16] MEDS: ASPIRIN EC 81 MG TABLET PO SCH (21:05)
[2020-04-16] MEDS: ROSUVASTATIN 20 MG TABLET PO SCH (21:05)
[2020-04-16] MEDS: traZODone 50 MG TABLET PO PRN (21:09)
[2020-04-17] MEDS: LEVOTHYROXINE 100 MCG TABLET PO SCH (05:36)
[2020-04-17 08:16] LABS: Basophils # 0.1 10*3/uL (0.0-0.2); Basophils % 0.3 % (0.0-0.8); Eosinophils % 0.1 % (0.00-10.9); Hematocrit 33.9 VOL% (35.7-47.0); Hemoglobin 10.9 GM/DL (12.0-16.0); Immature Granulocytes % 0.8 %; Immature Granulocytes Absolute 0.13 #; Lymphocytes # 2.4 10*3/uL (1.4-4.0); Lymphocytes % 14.9 % (21.3-54.2); Mean Corpuscular HGB Conc 32.2 GM/DL (32-36); Mean Corpuscular Volume 87.4 FL (87-102); Mean Platelet Volume 10.9 FL (9.6-12.0); Monocytes # 1.2 10*3/uL (0.11-0.8); Monocytes % 7.3 % (1.7-12.7); Neutrophils % 76.6 % (38.7-73.9); Platelet Count 248 T/CUMM (130-400); Red Blood Count 3.88 MC/CUMM (3.8-5.5); Red Cell Distribution Width 14.5 % (9.3-17.3); White Blood Count 16.1 T/CUMM (4-12)
[2020-04-17 08:35] LABS: Hypochromia 1+; Microcytosis 1+; Platelet Estimate Adequate
[2020-04-17 08:42] LABS: Calcium 8.8 MG/DL (8.5-10.1); Osmolality,Calculated 282.3 MOS/KG (273-304); Potassium 4.3 MMOL/L (3.5-5.1)
[2020-04-17] MEDS: carvediloL 3.125 MG TABLET PO SCH ×2 (08:47→20:38)
[2020-04-17] MEDS: MECLIZINE 25 MG TABLET PO SCH ×2 (08:47→20:38)
[2020-04-17] MEDS: PANTOPRAZOLE 40 MG TABLET PO SCH (08:47)
[2020-04-17] MEDS: LACTATED RINGERS 1,000 ML IV SCH (09:42)
[2020-04-17] MEDS: ASPIRIN EC 81 MG TABLET PO SCH (20:38)
[2020-04-17] MEDS: ROSUVASTATIN 20 MG TABLET PO SCH (20:38)
[2020-04-17] MEDS: traZODone 50 MG TABLET PO PRN (20:40)
[2020-04-18] MEDS: LACTATED RINGERS 1,000 ML IV SCH (05:08)
[2020-04-18] MEDS: LEVOTHYROXINE 100 MCG TABLET PO SCH (05:52)
[2020-04-18 08:07] LABS: Basophils # 0.1 10*3/uL (0.0-0.2); Basophils % 0.9 % (0.0-0.8); Eosinophils # 0.2 10*3/uL (0.0-0.87); Eosinophils % 1.5 % (0.00-10.9); Hemoglobin 9.8 GM/DL (12.0-16.0); Immature Granulocytes % 0.5 %; Immature Granulocytes Absolute 0.08 #; Lymphocytes # 2.9 10*3/uL (1.4-4.0); Lymphocytes % 19.3 % (21.3-54.2); Mean Corpuscular HGB Conc 32.7 GM/DL (32-36); Mean Platelet Volume 10.9 FL (9.6-12.0); Monocytes # 1.1 10*3/uL (0.11-0.8); Neutrophils % 70.8 % (38.7-73.9); Platelet Count 191 T/CUMM (130-400); Red Blood Count 3.45 MC/CUMM (3.8-5.5); Red Cell Distribution Width 14.6 % (9.3-17.3); White Blood Count 15.2 T/CUMM (4-12)
[2020-04-18 08:38] LABS: Calcium 8.2 MG/DL (8.5-10.1); Osmolality,Calculated 282.1 MOS/KG (273-304); Potassium 3.9 MMOL/L (3.5-5.1)
[2020-04-18 08:59] LABS: Total Cells Counted 100
[2020-04-18 09:01] LABS: Band Neutrophils 3 % (0-10); Eosinophils 2 % (0-10); Hypochromia 2+; Lymphocytes 21 % (20-55); Platelet Estimate Normal
[2020-04-18] MEDS: MECLIZINE 25 MG TABLET PO SCH ×2 (09:55→21:30)
[2020-04-18] MEDS: carvediloL 3.125 MG TABLET PO SCH ×2 (09:55→21:30)
[2020-04-18] MEDS: PANTOPRAZOLE 40 MG TABLET PO SCH (09:55)
[2020-04-18] MEDS: ASPIRIN EC 81 MG TABLET PO SCH (21:30)
[2020-04-18] MEDS: ROSUVASTATIN 20 MG TABLET PO SCH (21:30)
[2020-04-18] MEDS: traZODone 50 MG TABLET PO PRN (21:31)
[2020-04-19 05:40] LABS: Calcium 8.2 MG/DL (8.5-10.1); Osmolality,Calculated 279.3 MOS/KG (273-304); Potassium 3.9 MMOL/L (3.5-5.1)
[2020-04-19 05:56] LABS: Basophils # 0.1 10*3/uL (0.0-0.2); Basophils % 0.9 % (0.0-0.8); Eosinophils # 0.4 10*3/uL (0.0-0.87); Eosinophils % 3.9 % (0.00-10.9); Hematocrit 30.1 VOL% (35.7-47.0); Hemoglobin 9.6 GM/DL (12.0-16.0); Immature Granulocytes % 0.6 %; Immature Granulocytes Absolute 0.07 #; Lymphocytes # 2.7 10*3/uL (1.4-4.0); Lymphocytes % 23.9 % (21.3-54.2); Mean Corpuscular HGB Conc 31.9 GM/DL (32-36); Mean Corpuscular Volume 87.8 FL (87-102); Mean Platelet Volume 11.7 FL (9.6-12.0); Monocytes # 1.2 10*3/uL (0.11-0.8); Monocytes % 10.3 % (1.7-12.7); Neutrophils % 60.4 % (38.7-73.9); Platelet Count 177 T/CUMM (130-400); Red Blood Count 3.43 MC/CUMM (3.8-5.5); Red Cell Distribution Width 14.5 % (9.3-17.3); White Blood Count 11.4 T/CUMM (4-12)
[2020-04-19] MEDS: LACTATED RINGERS 1,000 ML IV SCH (06:24)
[2020-04-19] MEDS: LEVOTHYROXINE 100 MCG TABLET PO SCH (06:24)
[2020-04-19 08:00] VITALS: BP 161/36
[2020-04-19] MEDS: PANTOPRAZOLE 40 MG TABLET PO SCH (08:32)
[2020-04-19] MEDS: MECLIZINE 25 MG TABLET PO SCH (08:32)
[2020-04-19] MEDS: carvediloL 3.125 MG TABLET PO SCH (08:33)
== END 2020-04-19 09:35 | disposition home or self-care (01) ==
LOC: N.ED 11:19 → N.EDINP 13:48 → N.3E 18:14
PROVIDERS: ADMIT Surgery; ATTEND Surgery

== ENCOUNTER 2021-01-04 10:31 | Observation (INO) ==
[2021-01-04 10:55] LABS: Basophils # 0.1 10*3/uL (0.0-0.2); Basophils % 0.6 % (0.0-0.8); Eosinophils % 0.2 % (0.00-10.9); Hematocrit 32.4 VOL% (35.7-47.0); Hemoglobin 10.3 GM/DL (12.0-16.0); Immature Granulocytes % 0.5 %; Immature Granulocytes Absolute 0.05 #; Lymphocytes # 2.2 10*3/uL (1.4-4.0); Lymphocytes % 23.2 % (21.3-54.2); Mean Corpuscular HGB Conc 31.8 GM/DL (32-36); Mean Corpuscular Volume 87.3 FL (87-102); Mean Platelet Volume 11.9 FL (9.6-12.0); Monocytes % 7.6 % (1.7-12.7); Neutrophils % 67.9 % (38.7-73.9); Platelet Count 198 T/CUMM (130-400); Red Blood Count 3.71 MC/CUMM (3.8-5.5); Red Cell Distribution Width 15.3 % (9.3-17.3); White Blood Count 9.5 T/CUMM (4-12)
[2021-01-04 11:01] LABS: PT Patient Result 10.9 SECS (10.5-12.0)
[2021-01-04 11:24] LABS: Alanine Aminotransferase < 6 U/L (13-56); Alkaline Phosphatase 75 U/L (45-117); Aspartate Amino Transferase 10 U/L (0-37); Blood Urea Nitrogen 12 MG/DL (7-18); Calcium 8.2 MG/DL (8.5-10.1); Carbon Dioxide 26 MMOL/L (21-32); Estimated Glom Filtration Rate 48 ML/MIN; Glucose 102 MG/DL (74-106); Osmolality,Calculated 278.4 MOS/KG (273-304); Sodium 140 MMOL/L (136-145); Total Protein 5.4 G/DL (6.4-8.2)
[2021-01-04] MEDS ORDERED: FUROSEMIDE 100 MG/10 ML VIAL IV STA (11:26)
[2021-01-04] MEDS ORDERED: NITROGLYCERIN SL 0.4 MG TABLET SL PRN (13:10)
[2021-01-04] MEDS ORDERED: hydrOXYzine HCL 25 MG TABLET PO PRN (13:10)
[2021-01-04] MEDS ORDERED: GLUCAGON 1 MG VIAL IM PRN (13:20)
[2021-01-04] MEDS ORDERED: ACETAMINOPHEN 325 MG TABLET PO PRN (13:20)
[2021-01-04] MEDS ORDERED: DEXTROSE 50% 25 GM/50 ML VIAL IV PRN (13:20)
[2021-01-04] MEDS ORDERED: ONDANSETRON 4 MG/2 ML VIAL IV PRN (13:20)
[2021-01-04] MEDS: ENOXAPARIN 40 MG/0.4 ML SYRINGE SUBCUT SCH (14:28)
[2021-01-04] MEDS: carvediloL 3.125 MG TABLET PO SCH (16:40)
[2021-01-04] MEDS: FUROSEMIDE 40 MG/4 ML VIAL IV SCH (18:26)
[2021-01-04] MEDS: ROSUVASTATIN 20 MG TABLET PO SCH (20:57)
[2021-01-04] MEDS: RANOLAZINE 500 MG TABLET PO SCH (20:57)
[2021-01-04] MEDS: traZODone 50 MG TABLET PO SCH (20:57)
[2021-01-04] MEDS: ASPIRIN EC 81 MG TABLET PO SCH (20:57)
[2021-01-04] MEDS: LOSARTAN 25 MG TABLET PO SCH (20:58)
[2021-01-05] MEDS: LEVOTHYROXINE 100 MCG TABLET PO SCH (06:11)
[2021-01-05 08:10] LABS: Basophils # 0.1 10*3/uL (0.0-0.2); Eosinophils % 0.4 % (0.00-10.9); Hematocrit 33.6 VOL% (35.7-47.0); Hemoglobin 10.9 GM/DL (12.0-16.0); Immature Granulocytes % 0.4 %; Immature Granulocytes Absolute 0.03 #; Lymphocytes # 2.3 10*3/uL (1.4-4.0); Lymphocytes % 27.6 % (21.3-54.2); Mean Corpuscular HGB Conc 32.4 GM/DL (32-36); Mean Corpuscular Volume 85.7 FL (87-102); Mean Platelet Volume 12.9 FL (9.6-12.0); Monocytes % 8.2 % (1.7-12.7); Neutrophils % 62.4 % (38.7-73.9); Platelet Count 193 T/CUMM (130-400); Red Blood Count 3.92 MC/CUMM (3.8-5.5); Red Cell Distribution Width 15.4 % (9.3-17.3); White Blood Count 8.2 T/CUMM (4-12)
[2021-01-05] MEDS: FUROSEMIDE 40 MG/4 ML VIAL IV SCH ×2 (08:27→16:36)
[2021-01-05 08:39] LABS: Calcium 8.2 MG/DL (8.5-10.1); Osmolality,Calculated 278.3 MOS/KG (273-304); Potassium 3.2 MMOL/L (3.5-5.1); Risk Ratio 2.48; Thyroid Stimulating Hormone 2.66 uIU/ml (0.358-3.74); VLDL Cholesterol 22.4 MG/DL
[2021-01-05] MEDS ORDERED: POTASSIUM CHLORIDE 20 MEQ TABLET PO ONE (08:59)
[2021-01-05] MEDS ORDERED: LINACLOTIDE 145 MCG CAPSULE PO SCH (09:00)
[2021-01-05] MEDS: LOSARTAN 25 MG TABLET PO SCH ×2 (09:12→20:53)
[2021-01-05] MEDS: RANOLAZINE 500 MG TABLET PO SCH ×2 (09:13→20:53)
[2021-01-05] MEDS: CETIRIZINE 10 MG TABLET PO SCH (09:13)
[2021-01-05] MEDS ORDERED: MAGNESIUM SULF RIDER 2 GM/50 ML PREMIX IV ONE (09:13)
[2021-01-05] MEDS: allopurinoL 100 MG TABLET PO SCH (09:13)
[2021-01-05] MEDS: carvediloL 3.125 MG TABLET PO SCH ×2 (09:14→16:36)
[2021-01-05] MEDS: DESITIN 4OZ/NYSTATIN 15 GRAM MIXTURE PASTE TOP SCH ×2 (14:39→23:27)
[2021-01-05] MEDS: ENOXAPARIN 40 MG/0.4 ML SYRINGE SUBCUT SCH (14:39)
[2021-01-05] MEDS: traZODone 50 MG TABLET PO SCH (20:53)
[2021-01-05] MEDS: ROSUVASTATIN 20 MG TABLET PO SCH (20:53)
[2021-01-05] MEDS: ASPIRIN EC 81 MG TABLET PO SCH (20:53)
[2021-01-06 05:57] LABS: Basophils # 0.1 10*3/uL (0.0-0.2); Basophils % 0.9 % (0.0-0.8); Eosinophils % 0.5 % (0.00-10.9); Hematocrit 30.5 VOL% (35.7-47.0); Hemoglobin 10.1 GM/DL (12.0-16.0); Immature Granulocytes % 0.4 %; Immature Granulocytes Absolute 0.03 #; Lymphocytes # 2.2 10*3/uL (1.4-4.0); Lymphocytes % 27.5 % (21.3-54.2); Mean Corpuscular HGB Conc 33.1 GM/DL (32-36); Mean Corpuscular Volume 86.2 FL (87-102); Mean Platelet Volume 12.4 FL (9.6-12.0); Monocytes % 8.2 % (1.7-12.7); Neutrophils % 62.5 % (38.7-73.9); Platelet Count 161 T/CUMM (130-400); Red Blood Count 3.54 MC/CUMM (3.8-5.5); Red Cell Distribution Width 15.1 % (9.3-17.3)
[2021-01-06 06:09] LABS: Calcium 7.8 MG/DL (8.5-10.1); Osmolality,Calculated 278.4 MOS/KG (273-304); Potassium 3.3 MMOL/L (3.5-5.1)
[2021-01-06] MEDS: LEVOTHYROXINE 100 MCG TABLET PO SCH (06:10)
[2021-01-06] MEDS ORDERED: POTASSIUM CHLORIDE 20 MEQ TABLET PO ONE (07:21)
[2021-01-06 08:44] VITALS: BP 169/74
[2021-01-06] MEDS: LOSARTAN 25 MG TABLET PO SCH (09:06)
[2021-01-06] MEDS: CETIRIZINE 10 MG TABLET PO SCH (09:06)
[2021-01-06] MEDS: allopurinoL 100 MG TABLET PO SCH (09:06)
[2021-01-06] MEDS: RANOLAZINE 500 MG TABLET PO SCH (09:07)
[2021-01-06] MEDS: DESITIN 4OZ/NYSTATIN 15 GRAM MIXTURE PASTE TOP SCH (09:07)
[2021-01-06] MEDS: carvediloL 3.125 MG TABLET PO SCH (09:07)
[2021-01-06] MEDS: FUROSEMIDE 40 MG/4 ML VIAL IV SCH (09:25)
[2021-01-07] MEDS ORDERED: FUROSEMIDE 40 MG TABLET PO SCH (09:00)
== END 2021-01-06 11:36 | disposition home or self-care (01) ==
LOC: N.ED 10:31 → N.EDINP 10:31 → N.TELEN 13:23
PROVIDERS: ADMIT Internal Medicine; ATTEND Internal Medicine